=== PATIENT | male | born 1990 | race Caucasian/White ===

== ENCOUNTER 2018-07-31 12:42 | Inpatient (IN) ==
[2018-07-31] MEDS ORDERED: LORazepam 1 MG/2 ML VIAL IV STA (13:14)
[2018-07-31] MEDS ORDERED: CEFAZOLIN 1000MG 1,000 MG/7.5 ML SYR IV STA (13:15)
[2018-07-31 13:29] LABS: Basophils # (auto) 0.06 K/uL (0-0.2); Basophils % (auto) 0.5 %; Eosinophils # (auto) 0.04 K/uL (0-0.5); Eosinophils % (auto) 0.3 %; Hematocrit (blood only) 41.8 % (42-52); Hemoglobin 15.8 g/dL (14.0-18.0); Immature Granulocytes # (auto) 0.02 K/uL (0.00-0.02); Immature Granulocytes % (auto) 0.2 %; Lymphocytes # (auto) 2.93 K/uL (1.2-3.4); Lymphocytes % (auto) 24.3 %; Mean Corpuscular Hgb Conc 37.8 g/dL (32-36); Mean Corpuscular Volume 79.2 fL (80-100); Mean Platelet Volume 12.8 fL (7.4-10.4); Monocytes # (auto) 1.04 K/uL (0.11-0.59); Monocytes % (auto) 8.6 %; Neutrophils # (auto) 7.98 K/uL (1.4-6.5); Neutrophils % (auto) 66.1 %; Platelet Count 185 K/uL (130-400); RDW Coefficient of Variation 12.7 % (11.5-14.5); RDW Standard Deviation 36.7 fL (36.4-46.3); Red Blood Count 5.28 M/uL (4.7-6.1); White Blood Count 12.07 K/uL (4.8-10.8)
[2018-07-31 13:42] LABS: INR 1.1 (0.9-1.1)
[2018-07-31 13:52] LABS: Acetaminophen < 2 ug/ml (10-30); Salicylate 3.3 mg/dl (2.8-20)
[2018-07-31 13:54] LABS: Albumin Level 4.5 gm/dl (3.4-5.0); BUN Creatinine Ratio 13.7 (10-20); Creatinine Clr Calc Pharmacy 122.6 ml/min; Est GFR (African American) 95.2; Est GFR (Non-African American) 82.1; Magnesium 2.3 mg/dl (1.8-2.4); Potassium 3.1 mmol/L (3.5-5.1)
[2018-07-31 13:57] LABS: Albumin Globulin Ratio 1.1 (0.9-2); Bilirubin,Total 1.1 mg/dl (0.2-1); Total Protein 8.5 gm/dl (6.4-8.2)
--- NOTE | 2018-07-31 14:10 | CT Scan Report ---
HEAD CT NONCONTRAST CT DOSE: 537.48 mGy.cm HISTORY: Altered mental status. TECHNIQUE: Multiaxial CT images of the head were performed without the use of intravenous contrast. A utomated exposure control was utilized for this study. A dose lowering technique was utilized adheri ng to the principles of ALARA. Comparison: None. Findings: The paranasal sinuses and mastoid air cells are clear. The calvarium and skull base are int act. The ventricles and sulci are within normal limits. There is no mass, hematoma, midline shift, or acute infarct. Impression: No acute intracranial abnormality. Electronically signed by: Norman Johnson M.D. 07/31/2018 2:09 PM
[2018-07-31] MEDS ORDERED: OPTIRAY 320 125ml IV PRN (14:40)
--- NOTE | 2018-07-31 15:13 | CT Scan Report ---
CHEST CTA for PULMONARY ARTERIES CT DOSE: 624.59 mGy.cm HISTORY: Right-sided chest pain. TECHNIQUE: Multiaxial CT images of the chest were performed following the intravenous administration of contrast to evaluate the pulmonary arteries. Maximal intensity projection images were also obtaine d. A dose lowering technique was utilized adhering to the principles of ALARA. COMPARISON STUDY: None. FINDINGS: Normal caliber thoracic aorta with no evidence for dissection. The heart is normal in size. No pleural or pericardial effusion. Suboptimal opacification of the pulmonary arteries. This likely secondary to the timing of contrast. However, there are no definite filling defects within the pulmon matilde arteries to suggest pulmonary embolus. The visualized liver and spleen are unremarkable. No media stinal or hilar lymphadenopathy. Normal esophagus. No fractures within the visualized osseous structu res. No pneumothorax. The central airways are patent. The lungs are clear. IMPRESSION: The study is limited from a technical standpoint due to the timing of contrast. However, no definite evidence for pulmonary embolus. Electronically signed by: Norman Johnson M.D. 07/31/2018 3:12 PM
--- NOTE | 2018-07-31 16:13 | Ultrasound Report ---
LEFT LOWER EXTREMITY VENOUS DOPPLER HISTORY: pain behind left knee eval for dvt COMPARISON STUDY: None. FINDINGS: There is normal compressibility, flow, and augmentation within the left lower extremity arline p venous system. IMPRESSION: No DVT within the left lower extremity. Electronically signed by: Norman Johnson M.D. 07/31/2018 4:12 PM
[2018-07-31 18:17] LABS: Amphetamines+Metham, Urine Pos (Neg); Barbiturates, Urine Neg (Neg); Benzodiazepine, Urine Neg (Neg); Cocaine, Urine Neg (Neg); MDMA (Ecstacy), Urine Neg (Neg); Methadone, Urine Neg (Neg); Opiate, Urine Neg (Neg); Phencyclidine, Urine Neg (Neg)
--- NOTE | 2018-07-31 18:21 | Emergency Department Note ---
Entered by Dunia Dickerson acting as a scribe for History of Present Illness General Chief complaint: Mental Health Evaluation Source: patient and other (nursing staff) Limitations: altered mental status History of Present Illness Provider complaint: overdose Onset (ago): hour(s) (today) Location: left and right Quality: + other (overdose) The patient is a 28 year old male who presents to the Emergency Department with an overdose today. Per nursing staff, the patient has been trying to harm himself, and has been cutting himself and putting bleach in his drinks. Nursing staff states that the patient has scratches to his neck, chest, and abdomen. Nursing staff states that he took what he thinks was meth today but is unsure at what time. Per nursing staff, the patient drank a bottle of cough syrup last night. Per nursing staff, the patient did report having pain in his left leg and felt somewhat short of breath and feels like he needs to cough a lot. Per nursing staff, the patient has a history of psychological problems but does not have thoughts of wanting to hurt others. Nursing staff states that the patient called the ambulance as he did not want his mother to come home to a body. He states that he stopped taking his medications but is unsure how long ago he stopped taking them as he "no sense of time." Limited HPI secondary to AMS. Home Medications Home Medications Medication Instructions Recorded Confirmed Type No Known Home Medications 07/31/18 07/31/18 History Allergies Allergy/AdvReac Type Severity Reaction Status Date / Time kiwi Allergy Severe Anaphylaxis Verified 07/31/18 15:01 Penicillins Allergy Unknown Unknown Verified 07/31/18 15:01 Past Med/Surg History Medical History Overdose (Acute) Social History Feels Safe at Home: Yes Smoking Status: Current every day smoker Tobacco Type: cigarettes Review of Systems Limited ROS secondary to AMS. Physical Exam Vital Signs Vital Signs - 24 hr 07/31/18 12:44 07/31/18 12:49 07/31/18 12:50 Temperature Temperature Source Sepsis Recent Fever Within 48 Hours Sepsis New/Unexplained Change in Mental Status Sepsis Action Taken by Nursing Pulse Rate 121 H 127 H 127 H Pulse Rate [Apical] Pulse Rate from SpO2 Sensor 122 H 126 H 130 H Respiratory Rate 15 17 15 Respiratory Effort / Characteristics Respiratory Depth Respiratory Pattern Blood Pressure 152/104 H Blood Pressure [Right Arm] Blood Pressure Mean 120 Blood Pressure Mean [Right Arm] Pulse Oximetry 99 98 96 Oxygen Delivery Method 07/31/18 12:58 07/31/18 13:00 07/31/18 13:10 Temperature 37.0 C Temperature Source Oral Sepsis Recent Fever Within 48 Hours No Sepsis New/Unexplained Change in Mental Status No Sepsis Action Taken by Nursing No Action Required Pulse Rate 130 H 122 H 131 H Pulse Rate [Apical] Pulse Rate from SpO2 Sensor 126 H 203 H Respiratory Rate 28 H 21 19 Respiratory Effort / Characteristics Respiratory Depth Normal Respiratory Pattern Blood Pressure 152/104 H Blood Pressure [Right Arm] Blood Pressure Mean 120 Blood Pressure Mean [Right Arm] Pulse Oximetry 98 Oxygen Delivery Method Room Air 07/31/18 13:17 07/31/18 13:20 07/31/18 13:26 Temperature Temperature Source Sepsis Recent Fever Within 48 Hours Sepsis New/Unexplained Change in Mental Status Sepsis Action Taken by Nursing Pulse Rate 132 H 132 H Pulse Rate [Apical] Pulse Rate from SpO2 Sensor 127 H Respiratory Rate 24 20 Respiratory Effort / Characteristics Respiratory Depth Respiratory Pattern Blood Pressure 176/114 H Blood Pressure [Right Arm] Blood Pressure Mean 134 Blood Pressure Mean [Right Arm] Pulse Oximetry 94 100 Oxygen Delivery Method Room Air 07/31/18 13:30 07/31/18 13:38 07/31/18 13:39 Temperature Temperature Source Sepsis Recent Fever Within 48 Hours Sepsis New/Unexplained Change in Mental Status Sepsis Action Taken by Nursing Pulse Rate 114 H 128 H Pulse Rate [Apical] 129 H Pulse Rate from SpO2 Sensor 119 H 130 H Respiratory Rate 18 28 H 17 Respiratory Effort / Characteristics Non-Labored Spontaneous Respiratory Depth Respiratory Pattern Regular Blood Pressure 148/89 H Blood Pressure [Right Arm] 148/89 H Blood Pressure Mean 108 Blood Pressure Mean [Right Arm] 108 Pulse Oximetry 98 99 100 Oxygen Delivery Method Room Air 07/31/18 13:40 07/31/18 13:50 07/31/18 14:08 Temperature Temperature Source Sepsis Recent Fever Within 48 Hours Sepsis New/Unexplained Change in Mental Status Sepsis Action Taken by Nursing Pulse Rate 130 H 114 H 119 H Pulse Rate [Apical] Pulse Rate from SpO2 Sensor 131 H 115 H 120 H Respiratory Rate 16 18 11 L Respiratory Effort / Characteristics Respiratory Depth Respiratory Pattern Blood Pressure Blood Pressure [Right Arm] Blood Pressure Mean Blood Pressure Mean [Right Arm] Pulse Oximetry 99 99 96 Oxygen Delivery Method 07/31/18 14:09 07/31/18 14:10 07/31/18 14:20 Temperature Temperature Source Sepsis Recent Fever Within 48 Hours Sepsis New/Unexplained Change in Mental Status Sepsis Action Taken by Nursing Pulse Rate 118 H 109 H 111 H Pulse Rate [Apical] 115 H Pulse Rate from SpO2 Sensor 118 H 108 H 111 H Respiratory Rate 14 19 15 Respiratory Effort / Characteristics Respiratory Depth Normal Respiratory Pattern Blood Pressure 117/102 H Blood Pressure [Right Arm] 117/102 H Blood Pressure Mean 107 Blood Pressure Mean [Right Arm] 107 Pulse Oximetry 97 94 75 L Oxygen Delivery Method Room Air 07/31/18 14:30 07/31/18 14:31 07/31/18 14:47 Temperature Temperature Source Sepsis Recent Fever Within 48 Hours Sepsis New/Unexplained Change in Mental Status Sepsis Action Taken by Nursing Pulse Rate 107 H 115 H Pulse Rate [Apical] Pulse Rate from SpO2 Sensor 112 H Respiratory Rate 18 18 25 H Respiratory Effort / Characteristics Respiratory Depth Respiratory Pattern Blood Pressure 146/93 H Blood Pressure [Right Arm] Blood Pressure Mean 110 Blood Pressure Mean [Right Arm] Pulse Oximetry 95 Oxygen Delivery Method 07/31/18 14:50 07/31/18 15:00 07/31/18 15:04 Temperature Temperature Source Sepsis Recent Fever Within 48 Hours Sepsis New/Unexplained Change in Mental Status Sepsis Action Taken by Nursing Pulse Rate 115 H Pulse Rate [Apical] Pulse Rate from SpO2 Sensor Respiratory Rate 18 26 H 16 Respiratory Effort / Characteristics Respiratory Depth Respiratory Pattern Blood Pressure 146/88 H Blood Pressure [Right Arm] Blood Pressure Mean 107 Blood Pressure Mean [Right Arm] Pulse Oximetry Oxygen Delivery Method 07/31/18 15:10 07/31/18 15:20 07/31/18 15:30 Temperature Temperature Source Sepsis Recent Fever Within 48 Hours Sepsis New/Unexplained Change in Mental Status Sepsis Action Taken by Nursing Pulse Rate 109 H 111 H 113 H Pulse Rate [Apical] Pulse Rate from SpO2 Sensor 111 H 218 H 103 H Respiratory Rate 27 H 19 27 H Respiratory Effort / Characteristics Respiratory Depth Respiratory Pattern Blood Pressure Blood Pressure [Right Arm] Blood Pressure Mean Blood Pressure Mean [Right Arm] Pulse Oximetry 97 97 96 Oxygen Delivery Method 07/31/18 15:31 07/31/18 15:40 07/31/18 15:50 Temperature Temperature Source Sepsis Recent Fever Within 48 Hours Sepsis New/Unexplained Change in Mental Status Sepsis Action Taken by Nursing Pulse Rate 111 H 115 H 109 H Pulse Rate [Apical] Pulse Rate from SpO2 Sensor 112 H 115 H 112 H Respiratory Rate 22 18 14 Respiratory Effort / Characteristics Respiratory Depth Respiratory Pattern Blood Pressure 127/80 Blood Pressure [Right Arm] Blood Pressure Mean 95 Blood Pressure Mean [Right Arm] Pulse Oximetry 98 99 97 Oxygen Delivery Method 07/31/18 16:00 07/31/18 16:01 07/31/18 16:10 Temperature Temperature Source Sepsis Recent Fever Within 48 Hours Sepsis New/Unexplained Change in Mental Status Sepsis Action Taken by Nursing Pulse Rate 126 H 133 H 113 H Pulse Rate [Apical] Pulse Rate from SpO2 Sensor 125 H 133 H 115 H Respiratory Rate 19 22 20 Respiratory Effort / Characteristics Respiratory Depth Respiratory Pattern Blood Pressure 144/92 H Blood Pressure [Right Arm] Blood Pressure Mean 109 Blood Pressure Mean [Right Arm] Pulse Oximetry 99 98 98 Oxygen Delivery Method 07/31/18 16:20 07/31/18 16:30 07/31/18 16:31 Temperature Temperature Source Sepsis Recent Fever Within 48 Hours Sepsis New/Unexplained Change in Mental Status Sepsis Action Taken by Nursing Pulse Rate 117 H 113 H 112 H Pulse Rate [Apical] Pulse Rate from SpO2 Sensor 115 H 115 H 112 H Respiratory Rate 19 22 32 H Respiratory Effort / Characteristics Respiratory Depth Respiratory Pattern Blood Pressure 105/81 Blood Pressure [Right Arm] Blood Pressure Mean 89 Blood Pressure Mean [Right Arm] Pulse Oximetry 97 91 93 Oxygen Delivery Method 07/31/18 16:40 07/31/18 16:50 07/31/18 17:00 Temperature Temperature Source Sepsis Recent Fever Within 48 Hours Sepsis New/Unexplained Change in Mental Status Sepsis Action Taken by Nursing Pulse Rate 108 H 119 H 117 H Pulse Rate [Apical] Pulse Rate from SpO2 Sensor 112 H 120 H 116 H Respiratory Rate 21 25 H 24 Respiratory Effort / Characteristics Respiratory Depth Respiratory Pattern Blood Pressure 136/87 Blood Pressure [Right Arm] Blood Pressure Mean 103 Blood Pressure Mean [Right Arm] Pulse Oximetry 99 98 93 Oxygen Delivery Method Room Air 07/31/18 17:01 07/31/18 17:10 07/31/18 17:20 Temperature Temperature Source Sepsis Recent Fever Within 48 Hours Sepsis New/Unexplained Change in Mental Status Sepsis Action Taken by Nursing Pulse Rate 114 H 117 H 116 H Pulse Rate [Apical] Pulse Rate from SpO2 Sensor 115 H 117 H 119 H Respiratory Rate 16 24 17 Respiratory Effort / Characteristics Respiratory Depth Respiratory Pattern Blood Pressure Blood Pressure [Right Arm] Blood Pressure Mean Blood Pressure Mean [Right Arm] Pulse Oximetry 99 96 98 Oxygen Delivery Method 07/31/18 17:30 07/31/18 17:40 07/31/18 17:50 Temperature Temperature Source Sepsis Recent Fever Within 48 Hours Sepsis New/Unexplained Change in Mental Status Sepsis Action Taken by Nursing Pulse Rate 115 H 112 H 107 H Pulse Rate [Apical] Pulse Rate from SpO2 Sensor 112 H 111 H 112 H Respiratory Rate 14 26 H 17 Respiratory Effort / Characteristics Respiratory Depth Respiratory Pattern Blood Pressure Blood Pressure [Right Arm] Blood Pressure Mean Blood Pressure Mean [Right Arm] Pulse Oximetry 94 96 97 Oxygen Delivery Method Constitutional: Vital signs reviewed. Eyes: Pupils are equal round reactive to light. Conjunctiva are noninjected. ENT: Pharynx is clear without erythema or exudate. Mucous membranes are moist. Neck supple without meningeal signs. Respiratory: Clear to auscultation bilaterally. Breath sounds are equal bilaterally. Cardiovascular: Tachycardic rate at 130 and regular rhythm. No rubs or gallops. GI: Soft, nondistended and nontender. Bowel sounds are present. Musculoskeletal: No peripheral edema. No lower extremity tenderness. Integumentary: Multiple lacerations to the bilateral forearms, chest and abdomen of unclear age without active bleeding or signs of cellulitis. Deeper lacerations to the left forearm. Neurological: The patient is awake and alert. No focal deficits. Psychiatric: Agitated. Uncooperative. Course 1302: The patient was evaluated in room A1. A history and physical were performed. 1358: The patient is less agitated. 1418: The patient is much more cooperative. He said that he has been cutting his arms for the last 4 days and none of the cuts are from today. He said that he did not have cough syrup but did have 47 tablets of 400 mg of guaifenesin throughout the night. He stated that he used meth yesterday and has been drinking unknown quantities of bleach and hydrogen peroxide over the last 4 days. 1422: I spoke to the [facility] Control [facility] who said control care and to not worry about the bleach or hydrogen peroxide unless he is having throat pain or difficulty swallowing. 1431: The patient denies having throat pain or trouble swallowing. He does report having mid right back pain and pain behind his left knee. He is agreeable to a CT scan. 1533: I updated the patient on his CT results. He is agreeable to an ultrasound of his leg. He is calm. His heart rate is down to 108. 1634: The patient has no complaints and is ready for his psych evaluation. The psych correctional case records supervisor will see him. 1750: The patient was talking to the staff about what he could do with a blood pressure cuff and heart monitor. His heart rate is about 100. Monitoring was discontinued and 1 to 1 observation will continue. 1800: The patient was signed out to Dr. Syed. Consultations Consultation #1: Poison Control Center Time: 14:22 Administered Medications Ioversol (Optiray 320 125ml) 115 ml IV ONCE PRN PRN Reason: Interaction Checking Stop: 08/04/18 14:39 Last Admin: 07/31/18 14:41 Dose: 115 ml Documented by: [id number] Discontinued Medications Lorazepam (Ativan) 1 mg in 2 mls @ 2 mls/min IV NOW STA Stop: 07/31/18 13:15 Last Admin: 07/31/18 13:37 Dose: 2 mls/min Documented by: [id number] Cefazolin Sodium (Ancef 1000mg) 1,000 mg in 7.5 mls @ 2.5 mls/min IV NOW STA Stop: 07/31/18 13:17 Last Admin: 07/31/18 13:36 Dose: 2.5 mls/min Documented by: [id number] Medical Decision Making Differential Diagnosis Differentials include elicit drug use, drug overdose, suicide attempt, mood disorder, and medication non-compliance. Medical Records Attestation: I reviewed the patient's medical records. I did perform a limited focused review of portions of the patient's old chart on the electronic medical record. The patient was here for a Lamictal overdose in 2011. Home Medications Current Medication List: was personally reviewed by me Laboratory Data Attestation: I reviewed the patient's lab results. Result diagrams: 07/31/18 13:17 07/31/18 13:17 Lab Results 07/31/18 07/31/18 07/31/18 Range/Units 13:17 13:17 13:17 WBC (4.8-10.8) K/uL RBC (4.7-6.1) M/uL Hgb (14.0-18.0) g/dL Hct (42-52) % MCV (80-100) fL MCH (25-34) pg MCHC (32-36) g/dL RDW Std Deviation (36.4-46.3) fL RDW Coeff of Mendoza (11.5-14.5) % Plt Count (130-400) K/uL MPV (7.4-10.4) fL Immature Gran % (Auto) % Neut % (Auto) % Lymph % (Auto) % [place] % (Auto) % Eos % (Auto) % Baso % (Auto) % Immature Gran # (Auto) (0.00-0.02) K/uL Neut # (Auto) (1.4-6.5) K/uL Lymph # (Auto) (1.2-3.4) K/uL [place] # (Auto) (0.11-0.59) K/uL Eos # (Auto) (0-0.5) K/uL Baso # (Auto) (0-0.2) K/uL PT (9.0-12.0) Seconds INR (0.9-1.1) Sodium 139 (136-145) mmol/L Potassium 3.1 L (3.5-5.1) mmol/L Chloride 111 H (98-107) mmol/L Carbon Dioxide 17 L (21-32) mmol/L Anion Gap 12.0 H (3-11) BUN 17 (7-18) mg/dl Creatinine 1.21 (0.6-1.4) mg/dl Est Cr Clr Drug Dosing 122.6 ml/min Est GFR ( Amer) 95.2 Est GFR (Non-Af Amer) 82.1 BUN/Creatinine Ratio 13.7 (10-20) Glucose 82 (70-99) mg/dl Calcium 10.0 (8.5-10.1) mg/dl Magnesium 2.3 (1.8-2.4) mg/dl Total Bilirubin 1.1 H (0.2-1) mg/dl AST 18 (15-37) U/L ALT 38 (12-78) U/L Alkaline Phosphatase 105 (45-117) U/L Total Protein 8.5 H (6.4-8.2) gm/dl Albumin 4.5 (3.4-5.0) gm/dl Globulin 4.0 (2.5-4.0) gm/dl Albumin/Globulin Ratio 1.1 (0.9-2) Salicylates 3.3 (2.8-20) mg/dl Urine Opiates Screen (Neg) Ur Methadone, Qual (Neg) Acetaminophen < 2 L (10-30) ug/ml Urine Barbiturates (Neg) Ur Phencyclidine (PCP) (Neg) U Amphetamin/Meth Scrn (Neg) MDMA (Ecstasy) Screen (Neg) U Benzodiazepines Scrn (Neg) Ur Cocaine Metabolite (Neg) U Marijuana (THC) Screen (Neg) Ethyl Alcohol mg/dL < 3.0 (0-3) mg/dl 07/31/18 07/31/18 07/31/18 Range/Units 13:17 13:17 13:17 WBC 12.07 H (4.8-10.8) K/uL RBC 5.28 (4.7-6.1) M/uL Hgb 15.8 (14.0-18.0) g/dL Hct 41.8 L (42-52) % MCV 79.2 L (80-100) fL MCH 29.9 (25-34) pg MCHC 37.8 H (32-36) g/dL RDW Std Deviation 36.7 (36.4-46.3) fL RDW Coeff of Mendoza 12.7 (11.5-14.5) % Plt Count 185 (130-400) K/uL MPV 12.8 H (7.4-10.4) fL Immature Gran % (Auto) 0.2 % Neut % (Auto) 66.1 % Lymph % (Auto) 24.3 % [place] % (Auto) 8.6 % Eos % (Auto) 0.3 % Baso % (Auto) 0.5 % Immature Gran # (Auto) 0.02 (0.00-0.02) K/uL Neut # (Auto) 7.98 H (1.4-6.5) K/uL Lymph # (Auto) 2.93 (1.2-3.4) K/uL [place] # (Auto) 1.04 H (0.11-0.59) K/uL Eos # (Auto) 0.04 (0-0.5) K/uL Baso # (Auto) 0.06 (0-0.2) K/uL PT 11.0 (9.0-12.0) Seconds INR 1.1 (0.9-1.1) Sodium (136-145) mmol/L Potassium (3.5-5.1) mmol/L Chloride (98-107) mmol/L Carbon Dioxide (21-32) mmol/L Anion Gap (3-11) BUN (7-18) mg/dl Creatinine (0.6-1.4) mg/dl Est Cr Clr Drug Dosing ml/min Est GFR ( Amer) Est GFR (Non-Af Amer) BUN/Creatinine Ratio (10-20) Glucose (70-99) mg/dl Calcium (8.5-10.1) mg/dl Magnesium Cancelled (1.8-2.4) mg/dl Total Bilirubin (0.2-1) mg/dl AST (15-37) U/L ALT (12-78) U/L Alkaline Phosphatase (45-117) U/L Total Protein (6.4-8.2) gm/dl Albumin (3.4-5.0) gm/dl Globulin (2.5-4.0) gm/dl Albumin/Globulin Ratio (0.9-2) Salicylates (2.8-20) mg/dl Urine Opiates Screen (Neg) Ur Methadone, Qual (Neg) Acetaminophen (10-30) ug/ml Urine Barbiturates (Neg) Ur Phencyclidine (PCP) (Neg) U Amphetamin/Meth Scrn (Neg) MDMA (Ecstasy) Screen (Neg) U Benzodiazepines Scrn (Neg) Ur Cocaine Metabolite (Neg) U Marijuana (THC) Screen (Neg) Ethyl Alcohol mg/dL (0-3) mg/dl 07/31/18 Range/Units 17:27 WBC (4.8-10.8) K/uL RBC (4.7-6.1) M/uL Hgb (14.0-18.0) g/dL Hct (42-52) % MCV (80-100) fL MCH (25-34) pg MCHC (32-36) g/dL RDW Std Deviation (36.4-46.3) fL RDW Coeff of Mendoza (11.5-14.5) % Plt Count (130-400) K/uL MPV (7.4-10.4) fL Immature Gran % (Auto) % Neut % (Auto) % Lymph % (Auto) % [place] % (Auto) % Eos % (Auto) % Baso % (Auto) % Immature Gran # (Auto) (0.00-0.02) K/uL Neut # (Auto) (1.4-6.5) K/uL Lymph # (Auto) (1.2-3.4) K/uL [place] # (Auto) (0.11-0.59) K/uL Eos # (Auto) (0-0.5) K/uL Baso # (Auto) (0-0.2) K/uL PT (9.0-12.0) Seconds INR (0.9-1.1) Sodium (136-145) mmol/L Potassium (3.5-5.1) mmol/L Chloride (98-107) mmol/L Carbon Dioxide (21-32) mmol/L Anion Gap (3-11) BUN (7-18) mg/dl Creatinine (0.6-1.4) mg/dl Est Cr Clr Drug Dosing ml/min Est GFR ( Amer) Est GFR (Non-Af Amer) BUN/Creatinine Ratio (10-20) Glucose (70-99) mg/dl Calcium (8.5-10.1) mg/dl Magnesium (1.8-2.4) mg/dl Total Bilirubin (0.2-1) mg/dl AST (15-37) U/L ALT (12-78) U/L Alkaline Phosphatase (45-117) U/L Total Protein (6.4-8.2) gm/dl Albumin (3.4-5.0) gm/dl Globulin (2.5-4.0) gm/dl Albumin/Globulin Ratio (0.9-2) Salicylates (2.8-20) mg/dl Urine Opiates Screen Neg (Neg) Ur Methadone, Qual Neg (Neg) Acetaminophen (10-30) ug/ml Urine Barbiturates Neg (Neg) Ur Phencyclidine (PCP) Neg (Neg) U Amphetamin/Meth Scrn Pos H (Neg) MDMA (Ecstasy) Screen Neg (Neg) U Benzodiazepines Scrn Neg (Neg) Ur Cocaine Metabolite Neg (Neg) U Marijuana (THC) Screen Pos H (Neg) Ethyl Alcohol mg/dL (0-3) mg/dl Imaging Data Radiologist's Impression: Radiology results as stated below per my review and th e radiologist's interpretation: CHEST CTA for PULMONARY ARTERIES CT DOSE: 624.59 mGy.cm HISTORY: Right-sided chest pain. TECHNIQUE: Multiaxial CT images of the chest were performed following the intravenous administration of contrast to evaluate the pulmonary arteries. Maximal intensity projection images were also obtained. A dose lowering techniq ue was utilized adhering to the principles of ALARA. COMPARISON STUDY: None. FINDINGS: Normal caliber thoracic aorta with no evidence for dissection. The heart is normal in size. No pleural or pericardial effusion. Suboptimal opacification of the pulmonary arteries. This likely secondary to the timing of contrast. However, there are no definite filling defects within the pulmonary arteries to suggest pulmonary embolus. The visualized liver and spleen are unremarkable. No mediastinal or hilar lymphadenopathy. Normal esophagus. No fractures within the visualized osseous structures. No pneumothorax. The central airways are patent. The lungs are clear. IMPRESSION: The study is limited from a technical standpoint due to the timing of contrast. However, no definite evidence for pulmonary embolus. Electronically signed by: Norman Johnson M.D. 07/31/2018 3:[address] CT DOSE: 537.48 mGy.cm HISTORY: Altered mental status. TECHNIQUE: Multiaxial CT images of the head were performed without the use of intravenous contrast. Automated exposure control was utilized for this study. A dose lowering technique was utilized adhering to the principles of ALARA. Comparison: None. Findings: The paranasal sinuses and mastoid air cells are clear. The calvarium and skull base are intact. The ventricles and sulci are within normal limits. There is no mass, hematoma, midline shift, or acute infarct. Impression: No acute intracranial abnormality. Electronically signed by: Norman Johnson M.D. 07/31/2018 2:09 PM LEFT LOWER EXTREMITY VENOUS DOPPLER HISTORY: pain behind left knee eval for dvt COMPARISON STUDY: None. FINDINGS: There is normal compressibility, flow, and augmentation within the left lower extremity deep venous system. IMPRESSION: No DVT within the left lower extremity. Electronically signed by: Norman Johnson M.D. 07/31/2018 4:12 PM ECG Data Attestation: I personally reviewed and interpreted this ECG as follows: Indication: toxicologic Rate (beats per minute): 128 Rhythm: sinus tachycardia Findings: + other (QRS 84, QTC 473) Blood Pressure Blood Pressure Findings: Elevated blood pressure Blood Pressure Disposition: Referred to patients primary care provider MDM Narrative I did evaluate the patient as noted above. The patient was brought into the resuscitation room. He is acutely agitated and tachycardic. He was uncooperative with questioning and so I did obtain history from the patient's nurse. IV access was established. The patient was placed on a continuous property assessment monitor. I did treat the patient with Ativan 1 mg IV. He was placed on one-to-one observation. I did order and personally review the patient's 12-lead EKG as described above. Twelve-lead EKG does not demonstrate any widening of the QRS or QT prolongation. I did order a urine analysis and urine tox screen. This is positive for amphetamines and marijuana. I did order and review the patient's blood work as noted in the electronic medical record. His white count is elevated. His potassium is 3.1. Serum alcohol and acetaminophen and salicylate levels are negative. I did order a CT of the head because of his agitation. I did review the images myself as well as the radiology report as described above. There is no evidence of acute intracranial hemorrhage. I did reassess the patient multiple times. He is now much more cooperative and able to give me a coherent story. He states that he has been drinking unknown quantities of hydroperoxide and bleach for the past 3 to 4 days as well as cutting his arms and his chest. He states the last time he cut himself was yesterday. His wounds will therefore need to be healed by secondary intent due to risk of infection. I did treated with IV Ancef. His wounds were cleaned and dressed. He also stated that he took 47 tablets of guaifenesin last night. He also stated he did methamphetamine. I did speak to poison control. They stated that he could be medically cleared and he only needed supportive care. The patient still was tachycardic and he explained that he is having some discomfort to the right thoracic region as well as behind his left knee. I therefore ordered a CT angiogram of the chest after discussing this with the patient. CT angiogram did not demonstrate any signs of PE, although the timing of the bolus was somewhat off. I did order a Doppler of the left leg which showed no evidence of DVT. On reassessment the patient is calm and no longer showing any significant tachycardia. I did medically clear him. Patient was evaluated by the mental health correctional case records supervisor. He is willing to sign himself in voluntarily. The patient was signed out to Dr. Syed pending final disposition. Impression & Plan Suicide attempt, Mood disorder, Drug overdose, Illicit drug use, Multiple lacerations Discharge Plan Visit Data Chief Complaint: Mental Health Evaluation ED Provider: Sampson Virk Discharge Problem: Suicide attempt, Mood disorder, Drug overdose, Illicit drug use, Multiple lacerations Patient Disposition: Still a Patient Forms Stand Alone Forms: My [facility] Prescriptions Prescriptions: No Action No Known Home Medications RF: 0 Referrals Referrals: PCP,NO [Primary Care Provider] - Discharge Problem: Drug overdose Qualifiers: Encounter type: initial encounter The scribe's documentation has been prepared under my direction and personally reviewed by me in its entirety. I confirm that the note above accurately reflects all work, treatment, procedures, and medical decision making performed by me.
[2018-07-31 18:32] LABS: Appearance Urine Clear (Clear); Bilirubin Urine Negative (Negative); Blood Urine Negative (Negative); Color Urine Yellow; Glucose Urine UA Negative (Negative); Ketones Urine 1+ (Negative); Leukocyte Esterase Urine Negative (Negative); Nitrite Urine Negative (Negative); Protein Urine Trace (Negative); Urobilinogen Urine Negative (Negative); pH Urine 5.5 (4.5-7.5)
[2018-07-31] MEDS ORDERED: POTASSIUM CHLORIDE 10 MEQ TABCR PO STA (18:33)
[2018-07-31 18:58] LABS: Bacteria Urine Negative (Negative); Hyaline Casts Urine 0-5 /lpf (0-5); RBC Urine 0-4 /hpf (0-4); WBC Urine 0-5 /hpf (0-5)
[2018-07-31] MEDS ORDERED: SODIUM CHLORIDE 0.65% NA SOLN 45 ML (OCEAN) PRN (19:18)
[2018-07-31] MEDS ORDERED: BISMUTH SUBSALICYLATE PER ML OMNICELL CHARGE PO PRN (19:18)
[2018-07-31] MEDS ORDERED: ALUMINUM/MAGNESIUM SUSP 30 ML UDC PO PRN (19:18)
[2018-07-31] MEDS ORDERED: ACETAMINOPHEN 325 MG TAB PO PRN (19:18)
[2018-07-31] MEDS ORDERED: MAGNESIUM HYDROXIDE SUSP 30 ML UDC PO PRN (19:18)
[2018-07-31 21:06] VITALS: O2SAT 99
--- NOTE | 2018-08-01 00:51 | Emergency Department Note ---
ED Visit Note I received this patient in signout at change of shift from Dr. Virk, pending psychiatric bed search. The patient was evaluated by 3 S. and admitted on a voluntary basis. Please refer to Dr. Virk's notes for further details of the history, physical and visit. . : Drug overdose Qualifiers: Encounter type: initial encounter
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
[2018-08-01] MEDS: HALOPERIDOL 1 MG TAB PO SCH ×2 (13:32→20:35)
[2018-08-01] MEDS ORDERED: BACITRACIN OINT 15 GM TUBE EXT PRN (15:49)
[2018-08-02 06:52] VITALS: BP 107/70; PULSE 76; TEMP 97.9
[2018-08-02] MEDS: HALOPERIDOL 1 MG TAB PO SCH (08:44)
[2018-08-02] MEDS ORDERED: CHLORPROMAZINE HCL 25 MG TABLET PO ONE (12:09)
--- NOTE | 2018-08-02 13:10 | Psychiatric Progress Note ---
Date of Service August 02, 2018 Impression / Recommendations (1) Borderline personality disorder: 08/01 -Personality disorder appears primary diagnosis. Symptoms appear long- standing and chronic. Prognosis poor. -Patient admitted on a voluntary status to the behavioral health unit. He will be encouraged to participate in unit programming as appropriate -We will continue to expand database and provide support as appropriate -Patient appears likely to require a structured disposition following discharge secondary to high risk and pattern regarding further self injury -Patient will be maintained on suicide precautions -Low threshold for line of sight or 1:1 if unable to maintain safety on the unit -Patient describes possible auditory hallucinations versus loud internal thought process with highly distorted negative thoughts about himself and commands to harm himself. At this time this appears a symptom of his borderline personality disorder however cannot rule out possibility of primary thought disorder. As patient has previously experienced reduced anxiety with Haldol, w ill restart at 2 mg 3 times daily with plan to convert to Haldol Decanoate -Patient will require fasting labs for baseline 08/02 -Affect more composed, thought process more effective and organized which may be treatment effect from Haldol or simply from the reassurance associated with confinement -Secondary to uncomfortable akathisia associated with initiation of Haldol yesterday, will discontinue at his request and substitute Thorazine 25 mg p.o. 3 times daily as alternative. Low potency antipsychotic should have lower risk for akathisia. He recalls history of positive response. -Patient remains unable to contract for safety outside of the structured environment of the hospital setting -will begin to explore disposition options this week. pt has expressed desire to d/c to [facility] (2) Social phobia: 08/01 -Appears chronic. May simply be function of BPD -Considering Lexapro restart (3) Suicide attempt: 08/01 -Guaifenesin overdose in combination with single ingestion of unquantified amount of crystal meth prior to admission. Medically cleared in the ER. Vital stable -Suicide precautions. Every 15 minute safety checks for now (4) Multiple lacerations: 08/01 -Lacerations evaluated in the ER. Patient received IV antibiotic for prophylaxis in the ER. 08/02 -Lacerations healing. Continue topical bacitracin as needed (5) MDD (major depressive disorder), recurrent severe, without psychosis: 08/01 -Reporting long-standing chronic depression with only fleeting periods of normal mood -Consider SSRI retrial Risk Factors Assessment Male: Yes : Yes Do You Have Access To A Gun?: No Health Problems: No Mental Health Diagnoses: Yes Substance Use Disorders: Yes Previous Attempt: Yes Previous Attempt; Highly Lethal: Yes Previous Attempt; Planned: Yes Family History of Suicide: No Previous Psychiatric Hospitalization: Yes Hopelessness: Yes Smoker: Yes Protective Factors Assessment Mormonism Beliefs: No : No Responsible for Young Children: No Employed: No Stable Relationships: No Supportive Family: No Interval History Chief Complaint "I feel better, like I can think more straight". Review of Systems Notes Whole body restlessness endorsed. Denies dystonia. Denies any sources of pain. Sleep Information Total Hours of Sleep: 12.25 Meal Information Percent Meal Consumed - Breakfast: 100 Percent Meal Consumed - Lunch: 100 Percent Meal Consumed - Dinner: 100 Subjective Subjective Patient was seen & assessed and interval progress reviewed with Treatment Team. Patient was restarted on Haldol yesterday which unfortunately seems to be causing some akathisia. Staff describe him as restless appearing and mildly irritable. He has been only modestly engaged in unit programming. On interview he states "I feel like I have to keep moving." He stands during the interview shifting weight back and forth on his legs. He does acknowledge notable improvement in mood today "but still depressed". Describes thoughts as more clear. Slept well last evening. He requests an alternative medication to the Haldol. "I just do not think I can keep taking it." He declines augmentation treatment to reduce akathisia. Physical Exam Psychiatric Orientation: alert and oriented x 3 Apperance: + disheveled (many intersecting lacerations on upper extremities) Eye Contact: + fair eye contact Motor Behavior: + akathisia; n tremor Speech: normal rate/rhythm/volume of speech Affect more calm, less constricted Mood: + depressed mood Thought Process: goal directed thought process and + perseveration (Regarding discomfort associated with restlessness) Thought Content: + cognitive distortions and + hopelessness; no delusions Suicidal Thoughts: + reports suicidal thoughts (While hospitalized. Does not feel he would be safe outside of the hospital) Homicidal Thoughts: denies homicidal thoughts Cognition: + recent memory not intact Estimated Intelligence: + below average estimated intelligence Insight: + impaired insight Judgement: + impaired judgement Vital Signs (Past 24 Hours) Last Vital Signs Temp 36.6 C 08/02/18 06:00 Pulse 76 08/02/18 06:00 Resp 18 08/02/18 06:00 BP 107/70 08/02/18 06:00 Pulse Ox 99 07/31/18 20:39 Results & Data Current Inpatient Medications Current Inpatient Medications: Current Inpatient Medications Acetaminophen (Tylenol) 650 mg PO Q4H PRN PRN Reason: Headache or Minor Fever Stop: 08/30/18 19:17 Al Hydrox/Mg Hydrox/Simethicone (Maalox) 30 ml PO Q4H PRN PRN Reason: GI Upset Stop: 08/30/18 19:17 Bacitracin (Bacitracin) 1 appln EXT Q12H PRN PRN Reason: apply to skin lacerations prn Stop: 08/31/18 15:48 Last Admin: 08/02/18 11:33 Dose: 1 appln Documented by: Bismuth Subsalicylate (Kaopectate) 15 ml PO PRN PRN PRN Reason: Loose Stool Stop: 08/30/18 19:17 Hydroxyzine HCl (Vistaril) 50 mg PO HSZ PRN PRN Reason: Insomnia Stop: 08/30/18 19:17 Hydroxyzine HCl (Vistaril) 25 mg PO Q4H PRN PRN Reason: Anxiety Stop: 08/30/18 19:17 Last Admin: 08/02/18 09:49 Dose: 25 mg Documented by: Ioversol (Optiray 320 125ml) 115 ml IV ONCE PRN PRN Reason: Interaction Checking Stop: 08/04/18 14:39 Last Admin: 07/31/18 14:41 Dose: 115 ml Documented by: Magnesium Hydroxide (Milk Of Magnesia) 30 ml PO DAILY PRN PRN Reason: Heartburn Stop: 08/30/18 19:17 Sodium Chloride ([place] Nasal) 1 - 2 sprays NA PRN PRN PRN Reason: Nasal Dryness/Congestion Stop: 08/30/18 19:17 Post Discharge Appointments Primary Care Physician Name Of Family Doctor: none Therapist Name of Therapist: Denies Belt Knife Feeder Name of Belt Knife Feeder: Denies CPT Code CPT Code 97082
[2018-08-03] MEDS ORDERED: CHLORPROMAZINE HCL 25 MG TABLET PO ONE (09:40)
--- NOTE | 2018-08-03 10:41 | Discharge Summary ---
Date of Service August 03, 2018 History of Present Illness This is a complicated chronic mental health patient with many prior psychiatric hospitalizations including lengthy state hospital stays who has never previously been admitted to this facility. Patient was medically worked up in our ER reporting overdose of 47 tablets of guaifenesin earlier that same day. He also reported that he had been cutting himself and putting bleach and hydrogen peroxide in his drinks for a few days. He also reported that he took what he believed to be was methamphetamine earlier that day. He also reported that he drank a bottle of cough syrup the night prior. He reported left leg pain and some shortness of breath. They noted that the patient did call the ambulance for himself as he did not want his mother to come home to a body. Patient received 1 mg of Ativan in the ER. EKG unremarkable. Urinalysis notable for methamphetamine and marijuana. White count was mildly elevated, potassium low at 3.1 and repleted. Alcohol, APAP, salicylate negative. Head CT benign. He was not able to quantify quantities of bleach and hydrogen peroxide consumed. Last cut day prior to presentation. Received IV Ancef in the ER. CT angiogram showed no evidence of PE and left lower extremity ultrasound showed no evidence of DVT. Patient was medically cleared and ultimately admitted on a voluntary commitment to the behavioral health unit last evening. Prior to interview today I was informed that the patient had dismissed the social welfare research worker not wanting to answer her "stupid questions." On my evaluation he describes a long history of problematic moods and behaviors dating back to his teenage years. He believes his primary diagnosis is borderline personality disorder. He reportedly has also been diagnosed with major depressive disorder and anxiety which was not further specified. He is unable to recall what his longest time. Has been outside of a mental health hospital in the last year but sounds to have many frequent recurrent hospitalizations. He states that he would like to go back to [facility] where he has previously stayed for 8 months and found helpful as he liked the structure, having a job to do, consistent people to talk to, and the dialectical behavioral therapy. He repeat edly states that he is not reliable or trustworthy to take medications as prescribed and feels that if he is given a bottle of medication that he will eventually overdose on it. As such, he perceives he needs a much more structured disposition. Concerning the he comments "when I decide I want to go I will look like I am okay but I want to be and I am just trying to get out so I can overdose again." He describes in the past that he has entered psychiatric hospitalization willingly with intention to achieve access to medications that he could later overdose on. He struggles with his account of time. He does acknowledge the overdose previously reported in the ER regarding a guaifenesin. He denies that the guaifenesin contain dextromethorphan. He denies that he drank a bottle of cough syrup. He acknowledges that he did ingest a rock of what he believed was meth which she stole from his mother "and I apologized for that." He reports 1-2 times per week marijuana use but otherwise denies recent recreational substance use. Denies alcohol use. He is unable to recall the last time that he felt good. He describes his mood as chronically depressed and then will episodically and sometimes rather abruptly or "randomly" become suicidal and punch himself, cut himself, or overdose. He describes using anger as a defense and he cries more easily than he would like. He describes chronic long-standing low self-esteem and high rejection sensitivity. He chronically worries what others are thinking of him and he describes symptoms of social phobia. He also appears to have panic attacks a few times per month which can trigger dramatic and destructive behaviors such as breaking a cell phone, shaving his head, or attempting to hurt himself. He denies that he becomes physically aggressive or violent to others. He does not describe generalized free-floating anxiety or OCD. He denies symptoms of hypomania or julian in the past. He does have a history of binging and laxative abuse but none recent. He denies a significant trauma history or PTSD. He describes hearing male and female voices telling him to kill himself and negative things about himself when he is out in public such as hearing a voice say "she can smell you" when you are someone in a grocery store which makes him upset and he uses headphones to cope with this. In exploring this it sounds more like a loud thought rather than a rakesh auditory hallucinations. He denies visual hallucinations or obvious delusions apart from his severely distorted negative thinking. He denies a history of dissociation. He reports last psychiatric hospitalization was at the [facility] and he did perceive some therapeutic benefit while been treated with Haldol and Lexapro she believes will both started during that hospitalization. He is willing to restart Haldol with goal to resume Haldol Decanoate ultimately. He describes continued self-injurious impulses. "I would not trust me with a pair of scissors right now." Physical Exam Psychiatric Orientation: oriented x 3 Apperance: + disheveled Eye Contact: + fair eye contact Motor Behavior: steady gait and station and no abnormal motor movements Speech: normal rate/rhythm/volume of speech Affect: + blunted affect "Okay." Thought Process: goal directed thought process and linear/logical thought process Thought Content: reality based without delusions Suicidal Thoughts: denies suicidal thoughts Reports that he typically uses hospitals as a way of getting back on psychiatric medications because he usually doesn't follow-through on outpatient appointments. Homicidal Thoughts: denies homicidal thoughts Hallucinations: no auditory hallucinations Cognition: recent memory grossly intact, remote memory grossly intact and attention grossly intact Estimated Intelligence: average estimated intelligence Insight: + fair insight Judgement: + fair judgement Vital Signs (Past 24 Hours) Last Vital Signs Temp 36.6 C 08/02/18 06:00 Pulse 76 08/02/18 06:00 Resp 18 08/02/18 06:00 BP 107/70 08/02/18 06:00 Pulse Ox 99 07/31/18 20:39 Principal Diagnosis Borderline Personality Disorder Psychiatric Data During the brief course of hospitalization the patient was offered various modalities of psychiatric treatment. These included individual, group, and activity therapy. As noted above, the patient quickly informed us that he typically uses hospital emergency rooms or inpatient units as a way of obtaining a supply of his medications when he runs out of them or feels the need for psychiatric meds, and because he tends not to follow through with outpatient appointments. He tells us that he did not have suicidal intent when he came into the hospital, but notes that he was upset because his visit with his mother had not gone the way he had hoped it would, although their relationship is not presently acrimonious. He acknowledges that he had stolen some of his mother's methamphetamine, and used it. The patient reports that he feels more settled and "together" when back home in [place], [place] with his roommate. He notes that it had originally been his plan to become closer with his family, which is why he was visiting in the area, but he now realizes that his family tends to be more supportive when there is "some distance between us." He has consistently reported no suicidal thoughts since admission, and indicates that he feels ready for discharge with a plan to return to [place]. In the past, the patient had taken haloperidol and Lexapro, but notes that he did not feel that Lexapro was particularly helpful and haloperidol had "weird" side effects that he had difficulty tolerating. He he reports that the medication that has always worked best for him has been chlorpromazine 25 mg 3 times a day. Accordingly, he was started on chlorpromazine in the hospital, and reported a favorable response, both in terms of his mood and his emotional stability. The patient notes that he is aware that he carries a diagnosis of borderline personality disorder. He has a long history of intentional self-injurious behaviors, primarily through self cutting, superficially. He reports that these behaviors tend to make him feel "better," but has difficulty saying in what way. He also says that he has been working to not engage in self cutting behaviors, with some recent success. The patient was discharged on chlorpromazine 25 mg 3 times a day, with plans to continue treatment on an outpatient basis in a very. Day of Discharge Assessment At the time of discharge the patient was observed to be somewhat disheveled. He reports that he is feeling better now that he is back on his psychiatric medications, and expresses an eagerness to return to his home in [place], [place]. His thought processes demonstrate tight associations. There is no evidence of any delusional material and the patient's thought content. He reports that he is not experiencing any perceptual disturbances. Although the patient had reported that he was suicidal at the time of admission, he is now saying that this was essentially a device that he often uses in order to secure his psychiatric medications. He had originally hoped that he would be transferred to [facility] because he had been there before and found it to be a pleasant place to live. However, he notes that on further consideration, he does not wish to go back into a long-term facility and, instead, feels ready to return to his home in [place]. He is currently denying any thoughts of suicide as well as homicide. As noted above, he has a long history of intentional self-injurious behaviors, and he will remain at long-term risk for self-harm given his diagnosis and his history. However, prolonged psychiatric hospitalization is not likely to mitigate this risk, and for that reason continued psychiatric hospitalization is not indicated. The patient is future oriented, describes a plan to proceed to an emergency room or contact outpatient providers should suicidal thoughts return. He also identifies his mother and sister as sources of support, although he also acknowledges that the support is best provided when there is some geographic distance between them. Transition of Care Transition Of Care Record: was reviewed with the patient Advance Directives Advance Directives Information Provided: Yes Advance Directives: No Mental Health Advance Directive: No Advance Directives on File: No Living Will: No Power of Mitochondrial Disorders Counselor: No Advance Directives Reason:: Declines as Mental Health Visit. Risk Factors Assessment Male: Yes : Yes Do You Have Access To A Gun?: No Health Problems: No Mental Health Diagnoses: Yes Substance Use Disorders: Yes Previous Attempt: Yes Previous Attempt; Highly Lethal: Yes Previous Attempt; Planned: Yes Previous Attempt; Didn't Tell Anyone: No Family History of Suicide: No Previous Psychiatric Hospitalization: Yes Hopelessness: Yes Smoker: Yes Protective Factors Assessment Jehovah'S Witness Beliefs: No : No Responsible for Young Children: No Employed: No Stable Relationships: No Supportive Family: No Good Rapport with Provider: No Absence of Any Risk Factors Above: No Tobacco Cessation at Discharge Tobacco Cessation Medication Prescribed at Discharge: Not Applicable/Non-Smoker Antipsychotic Medications The patient has a known diagnosis of borderline personality disorder and has persistent difficulty regulating his mood. He reports that chlorpromazine and lower dosages has always helped him maintain mood stability. Total Time Total Time Spent: Greater Than 30 Minutes Total Time Includes: Examination of the patient, Discharge Planning, Medication Reconciliation and Communication with other providers Discharge Data Lab Results 07/31/18 07/31/18 07/31/18 13:17 13:17 13:17 WBC RBC Hgb Hct MCV MCH MCHC RDW Std Deviation RDW Coeff of Mendoza Plt Count MPV Immature Gran % (Auto) Neut % (Auto) Lymph % (Auto) Guthrie % (Auto) Eos % (Auto) Baso % (Auto) Immature Gran # (Auto) Neut # (Auto) Lymph # (Auto) Guthrie # (Auto) Eos # (Auto) Baso # (Auto) PT INR Sodium 139 Potassium 3.1 L Chloride 111 H Carbon Dioxide 17 L Anion Gap 12.0 H BUN 17 Creatinine 1.21 Est Cr Clr Drug Dosing 122.6 Est GFR ( Amer) 95.2 Est GFR (Non-Af Amer) 82.1 BUN/Creatinine Ratio 13.7 Glucose 82 Calcium 10.0 Magnesium 2.3 Total Bilirubin 1.1 H AST 18 ALT 38 Alkaline Phosphatase 105 Total Protein 8.5 H Albumin 4.5 Globulin 4.0 Albumin/Globulin Ratio 1.1 Urine Color Urine Appearance Urine pH Ur Specific [place] Urine Protein Urine Glucose (UA) Urine Ketones Urine Blood Urine Nitrite Urine Bilirubin Urine Urobilinogen Ur Leukocyte Esterase Urine RBC Urine WBC Ur Epithelial Cells Urine Bacteria Hyaline Casts Salicylates 3.3 Urine Opiates Screen Ur Methadone, Qual Acetaminophen < 2 L Urine Barbiturates Ur Phencyclidine (PCP) U Amphetamin/Meth Scrn MDMA (Ecstasy) Screen U Benzodiazepines Scrn Ur Cocaine Metabolite U Marijuana (THC) Screen Ethyl Alcohol mg/dL < 3.0 07/31/18 07/31/18 07/31/18 13:17 13:17 13:17 WBC 12.07 H RBC 5.28 Hgb 15.8 Hct 41.8 L MCV 79.2 L MCH 29.9 MCHC 37.8 H RDW Std Deviation 36.7 RDW Coeff of Mendoza 12.7 Plt Count 185 MPV 12.8 H Immature Gran % (Auto) 0.2 Neut % (Auto) 66.1 Lymph % (Auto) 24.3 Guthrie % (Auto) 8.6 Eos % (Auto) 0.3 Baso % (Auto) 0.5 Immature Gran # (Auto) 0.02 Neut # (Auto) 7.98 H Lymph # (Auto) 2.93 Guthrie # (Auto) 1.04 H Eos # (Auto) 0.04 Baso # (Auto) 0.06 PT 11.0 INR 1.1 Sodium Potassium Chloride Carbon Dioxide Anion Gap BUN Creatinine Est Cr Clr Drug Dosing Est GFR ( Amer) Est GFR (Non-Af Amer) BUN/Creatinine Ratio Glucose Calcium Magnesium Cancelled Total Bilirubin AST ALT Alkaline Phosphatase Total Protein Albumin Globulin Albumin/Globulin Ratio Urine Color Urine Appearance Urine pH Ur Specific [place] Urine Protein Urine Glucose (UA) Urine Ketones Urine Blood Urine Nitrite Urine Bilirubin Urine Urobilinogen Ur Leukocyte Esterase Urine RBC Urine WBC Ur Epithelial Cells Urine Bacteria Hyaline Casts Salicylates Urine Opiates Screen Ur Methadone, Qual Acetaminophen Urine Barbiturates Ur Phencyclidine (PCP) U Amphetamin/Meth Scrn MDMA (Ecstasy) Screen U Benzodiazepines Scrn Ur Cocaine Metabolite U Marijuana (THC) Screen Ethyl Alcohol mg/dL 07/31/18 07/31/18 17:27 17:27 WBC RBC Hgb Hct MCV MCH MCHC RDW Std Deviation RDW Coeff of Mendoza Plt Count MPV Immature Gran % (Auto) Neut % (Auto) Lymph % (Auto) Guthrie % (Auto) Eos % (Auto) Baso % (Auto) Immature Gran # (Auto) Neut # (Auto) Lymph # (Auto) Guthrie # (Auto) Eos # (Auto) Baso # (Auto) PT INR Sodium Potassium Chloride Carbon Dioxide Anion Gap BUN Creatinine Est Cr Clr Drug Dosing Est GFR ( Amer) Est GFR (Non-Af Amer) BUN/Creatinine Ratio Glucose Calcium Magnesium Total Bilirubin AST ALT Alkaline Phosphatase Total Protein Albumin Globulin Albumin/Globulin Ratio Urine Color Yellow Urine Appearance Clear Urine pH 5.5 Ur Specific [place] 1.010 Urine Protein Trace H Urine Glucose (UA) Negative Urine Ketones 1+ H Urine Blood Negative Urine Nitrite Negative Urine Bilirubin Negative Urine Urobilinogen Negative Ur Leukocyte Esterase Negative Urine RBC 0-4 Urine WBC 0-5 Ur Epithelial Cells 5-10 H Urine Bacteria Negative Hyaline Casts 0-5 Salicylates Urine Opiates Screen Neg Ur Methadone, Qual Neg Acetaminophen Urine Barbiturates Neg Ur Phencyclidine (PCP) Neg U Amphetamin/Meth Scrn Pos H MDMA (Ecstasy) Screen Neg U Benzodiazepines Scrn Neg Ur Cocaine Metabolite Neg U Marijuana (THC) Screen Pos H Ethyl Alcohol mg/dL Hospital Course (1) Borderline personality disorder: 08/01 -Personality disorder appears primary diagnosis. Symptoms appear long- standing and chronic. Prognosis poor. -Patient admitted on a voluntary status to the behavioral health unit. He will be encouraged to participate in unit programming as appropriate -We will continue to expand database and provide support as appropriate -Patient appears likely to require a structured disposition following discharge secondary to high risk and pattern regarding further self injury -Patient will be maintained on suicide precautions -Low threshold for line of sight or 1:1 if unable to maintain safety on the unit -Patient describes possible auditory hallucinations versus loud internal thought process with highly distorted negative thoughts about himself and commands to harm himself. At this time this appears a symptom of his borderline personality disorder however cannot rule out possibility of primary thought disorder. As patient has previously experienced reduced anxiety with Haldol, will restart at 2 mg 3 times daily with plan to convert to Haldol Decanoate -Patient will require fasting labs for baseline 08/02 -Affect more composed, thought process more effective and organized which may be treatment effect from Haldol or simply from the reassurance associated with confinement -Secondary to uncomfortable akathisia associated with initiation of Haldol yesterday, will discontinue at his request and substitute Thorazine 25 mg p.o. 3 times daily as alternative. Low potency antipsychotic should have lower risk for akathisia. He recalls history of positive response. -Patient remains unable to contract for safety outside of the structured environment of the hospital setting -will begin to explore disposition options this week. pt has expressed desire to d/c to [facility] 08/03 -The patient indicates that he is responded favorably to chlorpromazine 25 mg, and also indicates that he is tolerating it well. -He notes that he has further considered his idea of returning to [facility], but says now that he realizes that this is not the best plan and he feels ready to return to his home in [place], [place]. -The patient's report is that he often uses psychiatric hospitalizations as a temporary "respite" and uses emergency room's and psychiatric units as a source of medications when he runs out of them or when he go back on them. As part of this, he may claim to be suicidal. Currently, the patient reports that he has chronic recurrent thoughts of suicide, but no suicide plan and no suicide inten t. (2) Social phobia: 08/01 -Appears chronic. May simply be function of BPD -Considering Lexapro restart 08/03 -The patient may be a candidate for sertraline or Lexapro on an outpatient basis to treat social phobia. (3) Suicide attempt: 08/01 -Guaifenesin overdose in combination with single ingestion of unquantified amount of crystal meth prior to admission. Medically cleared in the ER. Vital stable -Suicide precautions. Every 15 minute safety checks for now 08/03 -Today, the patient indicates that while he did take a substantial quantity of guaifenesin in combination with crystal methamphetamine that he had stolen from his mother, he notes that his intent had been to "get high" and his intent was not to kill himself. (4) Multiple lacerations: 08/01 -Lacerations evaluated in the ER. Patient received IV antibiotic for prophylaxis in the ER. 08/02 -Lacerations healing. Continue topical bacitracin as needed 08/02 -Lacerations healing (5) MDD (major depressive disorder), recurrent severe, without psychosis: 08/01 -Reporting long-standing chronic depression with only fleeting periods of normal mood -Consider SSRI retrial 08/03 -It would appear that the patient's chronic mood alterations can best be explained by his primary diagnosis of borderline personality disorder. His current admission seems to be largely related to the fact that he traveled to this area from his own home in [place] with the expectation that he could become closer with his mother and his sister. Although their relationship is not described as being acrimonious, and while the patient does acknowledge that both his mother and his sister are fairly supportive, he was disappointed when he realized that he was not going to be able to achieve the kinds of closeness that he had hoped to have with him, at least not in the short-term, and that their relationships tend to do better when there is some G distance between them. The associated disappointment was initially experienced his rejection by the patient. Post Discharge Appointments Primary Care Physician Name Of Family Doctor: none Therapist Name of Therapist: Denies Quartz Miner Name of Quartz Miner: Denies Smoking Cessation Counseling Tobacco Cessation Medication Prescribed at Discharge: Not Applicable/Non-Smoker Discharge Plan Discharge Items Patient Disposition: Home - Self-Care Reason For Visit: MDR Discharge Diagnosis: Borderline personality disorder Discharge Goals: Improve function, Increase independence, Learn about illness and Prevent disease Activity: Resume your previous activity Non-emergency contact: Psychiatrist, Therapist and Bias Machine Operator Call non-emergency contact if: you have any medication questions and your symptoms worsen Follow-up/Referrals: PCP,NO [Primary Care Provider] - Diet: Regular Addtl Provider Instructions: Find an outpatient therapist and a psychiatrist upon returning home to [place]. This will be very important given her need for ongoing psychiatric treatment, including psychiatric medications and other forms of support. Prescriptions: New chlorpromazine 25 mg Tablet 25 mg PO TID Qty: 42 RF: 1 No Action No Known Home Medications RF: 0 Stand-Alone Forms: [facility] Discharge Orders: Discharge Order (Routine); Ordered 08/03/18 Ordered By: Jose Woods Admission Data Admit Date/Time: 07/31/18 19:18 Attending Provider: Arnel Helms Admit Provider: Arnel Helms Primary Care Provider: PCP,NO Service: Psychiatry Other Interventions: Discharge Summary Assessment (RN) Last Done: 08/03/18 11:07 PSY Interdisciplinary Discharge Planning Last Done: 08/03/18 11:02 Pending Studies at Discharge: No
[2018-08-03] MEDS ORDERED: CHLORPROMAZINE HCL 25 MG TABLET PO SCH (14:00)
[2018-08-05 10:13] LABS: Amphetamine Urine, Confirm 4600 NG/ML (CUTOF=250); Marijuana Quant, GCMS Urine 548 NG/ML (CUTOFF=5)
== END 2018-08-03 11:47 | disposition home or self-care (01) | DRG 883 ==
LOC: ED 12:42 → 3S 19:18
DX: Z88.0 Allergy status to penicillin; F33.2 Major depressive disorder, recurrent severe without psychotic features; F40.10 Social phobia, unspecified; F17.200 Nicotine dependence, unspecified, uncomplicated; T48.4X2A Poisoning by expectorants, intentional self-harm, initial encounter; T43.622A Poisoning by amphetamines, intentional self-harm, initial encounter; F60.3 Borderline personality disorder